=== PATIENT | female | born 1975 | race Caucasian/White ===

== ENCOUNTER 2017-06-06 20:25 | Emergency (ER) | payer OTHER ==
[2017-06-06 21:51] LABS: ADD MAN DIFF? NO
[2017-06-06 21:54] LABS: WHITE BLOOD COUNT 6.3 10^3/ul (4.8-10.8)
[2017-06-06 21:54] LABS: BASOPHILS % 0.5 % (0.0-2.0); EOSINOPHILS # 0.1 10^3/ul (0.0-0.5); EOSINOPHILS % 1.9 % (0.0-7.0); HEMATOCRIT 39.8 % (37.0-47.0); HEMOGLOBIN 13.1 g/dl (12.0-16.0); LYMPHOCYTES # 1.4 10^3/ul (0.8-2.9); LYMPHOCYTES % 22.5 % (15.0-51.0); MEAN CORPUSCULAR HEMOGLOBIN 24.1 pg (29.0-33.0); MEAN CORPUSCULAR HGB CONC 32.9 g/dl (32.0-37.0); MEAN CORPUSCULAR VOLUME 73.3 fl (82.0-101.0); MONOCYTE # 0.5 10^3/ul (0.3-0.9); MONOCYTES % 8.4 % (0.0-11.0); NEUTROPHIL # 4.2 10^3/ul (1.6-7.5); NEUTROPHILS % 66.4 % (39.0-77.0); PLATELET COUNT 221 10^3/UL (140-415); RED BLOOD COUNT 5.43 10^6/ul (4.20-5.40)
[2017-06-06] MEDS: ONDANSETRON 4 MG INJ IV (21:55)
[2017-06-06] MEDS: ACETAMINOPHEN 325 MG TAB PO (21:55)
[2017-06-06] MEDS: SOD CHLORIDE 0.9% 1,000 ML IV (21:56)
[2017-06-06 22:16] LABS: ALANINE AMINOTRANSFERASE 49 IU/L (13-69); ALBUMIN 4.4 g/dl (3.3-4.9); ALBUMIN/GLOBULIN RATIO 1.33; ALKALINE PHOSPHATASE 116 IU/L (42-121); ANION GAP 16 (8-16); ASPARTATE AMINO TRANSFERASE 37 IU/L (15-46); BILIRUBIN,INDIRECT 0.1 mg/dl (0-1.1); BILIRUBIN,TOTAL 0.1 mg/dl (0.2-1.3); BLOOD UREA NITROGEN 11 mg/dl (7-20); CALCIUM 9.3 mg/dl (8.4-10.2); CARBON DIOXIDE 26 mmol/L (21-31); CHLORIDE 105 mmol/L (97-110); CREATININE 0.74 mg/dl (0.44-1.00); GLUCOSE 99 mg/dl (70-220); POTASSIUM 3.8 mmol/L (3.5-5.1); SODIUM 143 mmol/L (135-144); TOTAL PROTEIN 7.7 g/dl (6.1-8.1)
[2017-06-06] MEDS: ALBUTEROL 0.083% (NEB) 2.5 MG/3 ML AMP HHN (22:16)
[2017-06-06] MEDS: IPRATROPIUM (NEB) 0.5 MG/2.5 ML AMP HHN (22:16)
== END 2017-06-07 00:13 | disposition home or self-care (01) ==
LOC: FTE 06-07 00:13
DX: J10.1 Influenza due to other identified influenza virus with other respiratory manifestations (principal); Z85.3 Personal history of malignant neoplasm of breast
CPT/HCPCS: 71045; 80053; 85025; 87040; 87400; 94664; 96361; 96374; 99284-25

== ENCOUNTER 2018-04-07 20:31 | Emergency (ER) | payer SELFPAY, OTHER | END 2018-04-08 01:04 | disposition left against medical advice (07) | LOC: E/R 20:31 | DX: Z53.21 Procedure and treatment not carried out due to patient leaving prior to being seen by health care provider (principal) ==

== ENCOUNTER 2018-08-01 18:18 | Emergency (ER) | payer OTHER ==
[2018-08-01] MEDS: ACETAMINOPHEN 500 MG TAB PO (22:45)
[2018-08-01] MEDS: HYDROCODONE/APAP (5/325) TAB PO (22:46)
[2018-08-01 23:14] LABS: CREATINE KINASE 72 IU/L (23-200)
== END 2018-08-02 01:10 | disposition home or self-care (01) ==
LOC: FTE 08-02 01:10
DX: M79.601 Pain in right arm (principal); Z85.3 Personal history of malignant neoplasm of breast
CPT/HCPCS: 82550; 93971; 99284-25